=== PATIENT | female | born 1995 | race Two or more races ===

== ENCOUNTER 2020-01-02 13:58 | Emergency (ER) | payer SELFPAY ==
--- NOTE | 2020-01-02 15:43 | RADIOLOGY REPORT (SQ) ---
EXAM DESCRIPTION: FOOT LEFT COMPLETE IMAGES COMPLETED DATE/TIME: 01/02/2020 3:31 pm REASON FOR STUDY: pain, fall COMPARISON: None. NUMBER OF VIEWS: Three views. TECHNIQUE: AP, lateral and oblique radiographic images acquired of the left foot. LIMITATIONS: None. FINDINGS: MINERALIZATION: Normal. BONES: No acute fracture or dislocation. No worrisome bone lesions. JOINTS: No effusions. SOFT TISSUES: No soft tissue swelling. No foreign body. OTHER: No other significant finding. IMPRESSION: NEGATIVE STUDY OF THE LEFT FOOT. NO RADIOGRAPHIC EVIDENCE OF ACUTE INJURY. TECHNICAL DOCUMENTATION: JOB ID: [id number] 2010 [employer]- All Rights Reserved Reading location - IP/workstation name: [email or web address]
[2020-01-02] MEDS ORDERED: DIPH/PERTUSS(ACELL)/TETANUS VAC/PF 0.5 ML SYR (>=10YO) IM ONE (16:38)
--- NOTE | 2020-01-02 16:43 | ER Document Report ---
ED General - General Chief Complaint: Foot Pain Stated Complaint: LEFT FOOT PAIN/WOOD SPLINTER Notes: Patient is a 24-year-old white female with no significant past medical history presents to the emergency department the chief complaint of foreign body/puncture to the plantar surface of the left foot that occurred earlier today. Patient states she was walking up the stairs in her house when she accidentally stepped on a toothpick. She states she looked down and there was part of a broken toothpick lying in the floor. She felt like the other end of the toothpick was stuck in her foot but she could not see or visualize. She went to an urgent care facility who evaluated her, made a small incision trying to search for foreign body, they were unable to identify or successfully remove foreign body so they sent her here for further evaluation. She has not had her tetanus updated. Past Medical History - Social History Smoking Status: Unknown if Ever Smoked Family History: Reviewed & Not Pertinent Review of Systems - Review of Systems Musculoskeletal: Other - Foot pain Skin: Other - Possible foreign body -: Yes All other systems reviewed and negative Physical Exam - Vital signs Vitals: Temp Pulse Resp BP Pulse Ox 99.1 F 89 16 135/85 H 99 01/02/20 15:48 01/02/20 15:48 01/02/20 15:48 01/02/20 15:48 01/02/20 15:48 - General General appearance: Appears well, Alert In distress: None - Respiratory Respiratory status: No respiratory distress Chest status: Nontender Breath sounds: Normal Chest palpation: Normal - Cardiovascular Rhythm: Regular Heart sounds: Normal auscultation - Extremities General upper extremity: Normal inspection, Nontender, Normal color, Normal ROM, Normal temperature General lower extremity: Normal inspection, Nontender, Normal color, Normal ROM, Normal temperature, Normal weight bearing. No: Adrian's sign - Neurological Neuro grossly intact: Yes Cognition: Normal Orientation: AAOx4 - Psychological Associated symptoms: Normal affect, Normal mood - Skin Skin Color: Other - Small incision to the lateral edge of the plantar surface of the left foot just proximal to the fourth of the digits. Hemostasis maintained. There appears to be some adipose tissue in the wound but no visible foreign body. X-ray shows no foreign body as well. Area is tender. No erythema or drainage. Course - Re-evaluation Re-evalutation: 06/26/20 16:41 Discussed with patient conservative management versus more invasive approach. She elected given her lack of insurance to trial conservative measures first. She will wear a bulky dressing on the foot, avoid any submersion in bodies of water with the exception of soaking her foot in Betadine and water or soap and water twice a day. Her tetanus was updated she will be placed on Keflex prophylactically. We discussed routine foreign body processes. Counseled her regarding the importance of outpatient follow-up regarding reevaluation of the progress and advised that she return here or any ER immediately with any new, persistent or worsening symptoms. She verbalized understood and agreed. - Vital Signs Vital signs: Temp Pulse Resp BP Pulse Ox 99.1 F 89 16 135/85 H 99 01/02/20 15:48 01/02/20 15:48 01/02/20 15:48 01/02/20 15:48 01/02/20 15:48 Discharge - Discharge Clinical Impression: Puncture wound of foot Qualifiers: Encounter type: initial encounter Laterality: unspecified laterality Qualified Code(s): S91.339A - Puncture wound without foreign body, unspecified foot, initial encounter Condition: Stable Disposition: HOME, SELF-CARE Instructions: Puncture Wound ([facility]) Additional Instructions: Follow-up with your regular doctor in 2 to 3 days for reevaluation. Return here or any ER immediately with any new, persistent or worsening symptoms. Prescriptions: Cephalexin Monohydrate [Keflex 500 mg Capsule] 500 mg PO BID 10 Days #20 capsule
[2020-01-02 18:09] VITALS: BP 140/95
== END 2020-01-02 18:08 | disposition home or self-care (01) ==
LOC: ER 13:58
DX: S91.339A Puncture wound without foreign body, unspecified foot, initial encounter (principal); M79.672 Pain in left foot; W22.09XA Striking against other stationary object, initial encounter; Z23 Encounter for immunization
CPT/HCPCS: 90471; 90715; 99283